=== PATIENT | female | born 1955 | race Caucasian/White ===

== ENCOUNTER 2017-06-25 17:58 | Emergency (ER) | payer OTHER ==
[2017-06-25 19:00] LABS: ADD MAN DIFF? NO
[2017-06-25] MEDS ORDERED: 0.9 % SODIUM CHLORIDE 10 ML DISP.SYRIN. IV (19:00)
[2017-06-25 19:03] LABS: BASO % 1 % (0-3); EOS # 0.1 x10^3/uL (0.0-0.7); EOS % 2 % (0-3); HEMATOCRIT 47.5 % (36.0-47.0); HEMOGLOBIN 16.1 g/dL (12.0-15.5); LYMPH # 1.3 x10^3/uL (1.0-4.8); LYMPH % 25 % (24-48); MEAN CORPUSCULAR HEMOGLOBIN 28 pg (25-35); MEAN CORPUSCULAR HGB CONC 34 g/dL (31-37); MEAN CORPUSCULAR VOLUME 83 fL (79-100); MONO # 0.8 x10^3/uL (0.0-1.1); MONO % 15 % (0-9); NEUT # 3.1 x10^3uL (1.8-7.7); NEUT % 58 % (31-73); PLATELET COUNT 152 x10^3/uL (140-400); RED BLOOD COUNT 5.71 x10^6/uL (3.50-5.40); RED CELL DISTRIBUTION WIDTH 13.8 % (11.5-14.5); WHITE BLOOD COUNT 5.4 x10^3/uL (4.0-11.0)
[2017-06-25] MEDS: IV NORMAL SALINE 1000ML BAG 1,000 ML IV (19:03)
[2017-06-25 19:23] LABS: BILIRUBIN,URINE SMALL (NEG); CLARITY,URINE CLOUDY; COLOR,URINE AMBER; GLUCOSE,URINE 250 mg/dL (NEG); NITRITE,URINE NEGATIVE (NEG); PH,URINE 5.5; PROTEIN,URINE NEGATIVE (NEG-TRACE); UROBILINOGEN,URINE 0.2 mg/dL (0.2 mg/dL)
[2017-06-25 19:41] LABS: ANION GAP 11 (6-14); BLOOD UREA NITROGEN 9 mg/dL (7-20); CALCIUM 8.7 mg/dL (8.5-10.1); CARBON DIOXIDE 26 mmol/L (21-32); CHLORIDE 102 mmol/L (98-107); CREATININE 0.7 mg/dL (0.6-1.0); GFR 85.1; GLUCOSE 209 mg/dL (70-99); POTASSIUM 4.4 mmol/L (3.5-5.1); SODIUM 139 mmol/L (136-145)
[2017-06-25 19:46] LABS: ALBUMIN 3.8 g/dL (3.4-5.0); ALK PHOS 81 U/L (46-116); ALT (SGPT) 39 U/L (14-59); AST (SGOT) 20 U/L (15-37); DIRECT BILIRUBIN < 0.1 mg/dL (0.0-0.2); LIPASE 149 U/L (73-393); TOTAL BILIRUBIN 0.5 mg/dL (0.2-1.0); TOTAL PROTEIN 7.3 g/dL (6.4-8.2)
[2017-06-25 19:47] LABS: TROPONINI < 0.017 ng/mL (0.000-0.055)
[2017-06-25 19:58] LABS: CKMB MASS < 0.5 ng/mL (0.0-3.6); CREATINE KINASE 34 U/L (26-192)
[2017-06-25 20:20] LABS: BACTERIA,URINE MODERATE /HPF (0-FEW); RBC,URINE 0 /HPF (0-2); SQUAMOUS EPITHELIAL CELL,UR MOD /LPF
== END 2017-06-25 20:37 | disposition home or self-care (01) ==
LOC: ER 17:58
DX: R19.7 Diarrhea, unspecified (principal); H92.02 Otalgia, left ear; R42 Dizziness and giddiness; E78.00 Pure hypercholesterolemia, unspecified; E11.40 Type 2 diabetes mellitus with diabetic neuropathy, unspecified; I10 Essential (primary) hypertension; K21.9 Gastro-esophageal reflux disease without esophagitis; Z90.49 Acquired absence of other specified parts of digestive tract; Z90.710 Acquired absence of both cervix and uterus; Z98.51 Tubal ligation status; Z86.73 Personal history of transient ischemic attack (TIA), and cerebral infarction without residual deficits; Z88.2 Allergy status to sulfonamides; Z88.6 Allergy status to analgesic agent; Z88.8 Allergy status to other drugs, medicaments and biological substances
CPT/HCPCS: 36415; 80048; 80076; 81001; 82553; 83690; 84484; 85025; 87086; 93005; 96360; 99285-25; J7030

== ENCOUNTER 2018-04-14 11:56 | Emergency (ER) | payer OTHER ==
[~2018-04-14] VITALS: Ht 160 cm; Wt 77.1 kg
[~2018-04-14 11:56] MED LIST: DIPH1TAB PO; HYOS0.12 PO; ONDA4TAB10 PO
[2018-04-14] MEDS ORDERED: IV NORMAL SALINE 1000ML BAG 1,000 ML IV ONE (12:30)
[2018-04-14] MEDS ORDERED: FAMOTIDINE 20 MG/2 ML VIAL IVP ONE (12:30)
[2018-04-14] MEDS ORDERED: LIDO:MAALOX 1:1 20 ML SINGLE DOSE. SWSW ONE (12:30)
--- NOTE | 2018-04-14 12:37 | PHYS DOC ---
Past Medical History Past Medical History: Diabetes-Type II, GERD, High Cholesterol, Hypertension, TIA Additional Past Medical Histor: NEUROPATHY,H-PYLORIC Past Surgical History: Cholecystectomy, Hysterectomy, Tubal ligation Additional Past Surgical Histo: CARPEL TUNNEL Alcohol Use: None Drug Use: None Adult General Chief Complaint Chief Complaint: OTHER COMPLAINTS HPI HPI Patient is a 63 year old female who presents with frequent eructations. Onset of symptoms around 2100 last night. She states she has had continuous belching since onset of symptoms as well as the sensation of "a bubble" stuck in her chest. She has had some intermittent stabbing type chest pains. They're nonradiating. No shortness of breath or palpitations. She has not had a fever or chills or cough. She does have a prior history of reflux disease but has had no symptoms in recent years. Remotely, she had been treated with Nexium. No prior history of coronary artery disease. She does have diabetes and hypertension. Review of Systems Review of Systems Constitutional: Denies fever Eyes: Denies change in visual acuity HENT: Denies nasal congestion Respiratory: Denies cough or shortness of breath Cardiovascular: No additional information not addressed in HPI GI: Denies abdominal pain, nausea : Denies dysuria or hematuria Musculoskeletal: Denies back pain Integument: Denies rash or skin lesions Neurologic: Denies headache, Endocrine: Denies polyuria All other systems were reviewed and found to be within normal limits, except as documented in this note. Current Medications Current Medications Current Medications Medications (Trade) Dose Ordered Sig/Trav Start Time Stop Time Status Last Admin Dose Admin Famotidine (Pepcid Vial) 20 mg 1X ONCE 04/14/18 12:30 04/14/18 12:31 DC 04/14/18 12:55 20 MG Multi-Ingredient Mouthwash/Gargle (Gi Cocktail) 20 ml 1X ONCE 04/14/18 12:30 04/14/18 12:31 DC 04/14/18 12:52 20 ML Sodium Chloride 1,000 ml @ 1,000 mls/hr 1X ONCE 04/14/18 12:30 04/14/18 13:29 DC 04/14/18 12:53 1,000 MLS/HR Allergies Allergies Allergies Coded Allergies Type Severity Reaction Last Updated Verified Sulfa (Sulfonamide Antibiotics) Allergy Intermediate RASH 06/25/17 Yes aspirin Allergy Intermediate RASH 06/25/17 Yes ibuprofen Allergy Intermediate RASH 06/25/17 Yes Physical Exam Physical Exam Constitutional: Well developed, well nourished, no acute distress, non-toxic appearance HENT: Normocephalic, atraumatic, bilateral external ears normal, oropharynx moist Eyes: PERRLA, EOMI Neck: Normal range of motion Cardiovascular:Heart rate regular rhythm, no murmur Lungs & Thorax: Bilateral breath sounds clear to auscultation Abdomen: Bowel sounds normal, soft, NTTP Skin: Warm, dry, no erythema Back: No tenderness Extremities: No edema Neurologic: Alert and oriented X 3 Psychologic: Affect normal Current Patient Data Vital Signs Vital Signs Date Time Temp Pulse Resp B/P (MAP) Pulse Ox O2 Delivery O2 Flow Rate FiO2 04/14/18 14:35 93 20 114/83 (93) 95 Room Air 04/14/18 12:15 98.3 98.3 Lab Values Laboratory Tests Test 04/14/18 12:35 White Blood Count 6.6 x10^3/uL (4.0-11.0) Red Blood Count 5.09 x10^6/uL (3.50-5.40) Hemoglobin 14.7 g/dL (12.0-15.5) Hematocrit 42.2 % (36.0-47.0) Mean Corpuscular Volume 83 fL (79-100) Mean Corpuscular Hemoglobin 29 pg (25-35) Mean Corpuscular Hemoglobin Concent 35 g/dL (31-37) Red Cell Distribution Width 13.3 % (11.5-14.5) Platelet Count 166 x10^3/uL (140-400) Neutrophils (%) (Auto) 59 % (31-73) Lymphocytes (%) (Auto) 29 % (24-48) Monocytes (%) (Auto) 9 % (0-9) Eosinophils (%) (Auto) 3 % (0-3) Basophils (%) (Auto) 1 % (0-3) Neutrophils # (Auto) 3.9 x10^3uL (1.8-7.7) Lymphocytes # (Auto) 1.9 x10^3/uL (1.0-4.8) Monocytes # (Auto) 0.6 x10^3/uL (0.0-1.1) Eosinophils # (Auto) 0.2 x10^3/uL (0.0-0.7) Basophils # (Auto) 0.1 x10^3/uL (0.0-0.2) Sodium Level 134 mmol/L (136-145) L Potassium Level 4.4 mmol/L (3.5-5.1) Chloride Level 99 mmol/L (98-107) Carbon Dioxide Level 24 mmol/L (21-32) Anion Gap 11 (6-14) Blood Urea Nitrogen 10 mg/dL (7-20) Creatinine 0.8 mg/dL (0.6-1.0) Estimated GFR (Cockcroft-Gault) 72.7 Glucose Level 433 mg/dL (70-99) H Calcium Level 8.8 mg/dL (8.5-10.1) Troponin I Quantitative < 0.017 ng/mL (0.000-0.055) Laboratory Tests 04/14/18 12:35 Laboratory Tests 04/14/18 12:35 EKG EKG No STEMI Interpretation Time: 12:22 Radiology/Procedures Radiology/Procedures CXR: no acute findings Course & Med Decision Making Course & Med Decision Making Pertinent Labs and Imaging studies reviewed. (See chart for details) Patient is seen and examined. No distress. Sx for around 15 hours. Will check trop and ACS workup. EKG is non-acute. 15:15: Patient was evaluated in the emergency department for reflux symptoms. Her symptoms were improved after Pepcid and GI cocktail in the emergency department. Her lab panel is unremarkable. Her troponin was not elevated. Her EKG was normal. The patient had been having symptoms for around 15 hours prior to presentation. She was discharged to home with a prescription for Nexium. She' ll follow up with her primary care doctor or return to the ER for any new or worsening symptoms. Dragon Disclaimer Dragon Disclaimer This electronic medical record was generated, in whole or in part, using a voice recognition dictation system. Departure Departure Disposition: 01 HOME, SELF-CARE Condition: GOOD Referrals: DENG DIAZ DO (PCP) Scripts Omeprazole (OMEPRAZOLE) 40 Mg Capsule. 40 MG PO BIDAC, #60 CAP Prov: ISH DELGADILLO DO 04/14/18 ISH DELGADILLO DO Apr 14, 2018 12:37
[2018-04-14 12:51] LABS: BASO # 0.1 x10^3/uL (0.0-0.2); BASO % 1 % (0-3); EOS # 0.2 x10^3/uL (0.0-0.7); EOS % 3 % (0-3); HEMATOCRIT 42.2 % (36.0-47.0); HEMOGLOBIN 14.7 g/dL (12.0-15.5); LYMPH # 1.9 x10^3/uL (1.0-4.8); LYMPH % 29 % (24-48); MEAN CORPUSCULAR HEMOGLOBIN 29 pg (25-35); MEAN CORPUSCULAR HGB CONC 35 g/dL (31-37); MEAN CORPUSCULAR VOLUME 83 fL (79-100); MONO # 0.6 x10^3/uL (0.0-1.1); MONO % 9 % (0-9); NEUT # 3.9 x10^3uL (1.8-7.7); NEUT % 59 % (31-73); PLATELET COUNT 166 x10^3/uL (140-400); RED BLOOD COUNT 5.09 x10^6/uL (3.50-5.40); RED CELL DISTRIBUTION WIDTH 13.3 % (11.5-14.5); WHITE BLOOD COUNT 6.6 x10^3/uL (4.0-11.0)
--- NOTE | 2018-04-14 13:01 | EKG ---
[facility] [address] [place] [address] Test Date: 2018-04-14 Test Time: 12:22:05 Pat Name: LIAT BUSH Department: Room: Gender: F Hemodialysis Patient Care Specialist: : [id number] Requested By: ISH DELGADILLO Order Number: [id number] Reading MD: Vic Meyers MD Measurements Intervals [place] Rate: 103 P: 54 RI: 130 QRS: 81 QRSD: 76 T: 41 QT: 340 QTc: 447 Interpretive Statements SINUS TACHYCARDIA Electronically Signed On 04-15-2018 12:15:26 [employer] by Vic Meyers MD
[2018-04-14 13:07] LABS: CALCIUM 8.8 mg/dL (8.5-10.1); CREATININE 0.8 mg/dL (0.6-1.0); GFR 72.7; POTASSIUM 4.4 mmol/L (3.5-5.1)
--- NOTE | 2018-04-14 13:23 | RAD ---
EXAM: AP View of the chest DATE: 04/14/2018 12:48 PM INDICATION: CHEST PAIN COMPARISON: No Prior FINDINGS: The heart is not enlarged. Mediastinal and hilar contours are normal. No focal parenchymal airspace opacity. No pleural effusion or pneumothorax. IMPRESSION: 1. No radiographic evidence for acute cardiopulmonary process. Electronically signed by: Klever Jarquin MD (04/14/2018 1:19 PM) [id number]
[2018-04-14] MEDS ORDERED: OMEP40CA5 PO (14:34)
[2018-04-14 14:35] VITALS: BP 114/83
== END 2018-04-14 14:40 | disposition home or self-care (01) ==
LOC: ER 11:56
DX: R07.89 Other chest pain (principal); R14.2 Eructation; I10 Essential (primary) hypertension; E11.40 Type 2 diabetes mellitus with diabetic neuropathy, unspecified; E78.00 Pure hypercholesterolemia, unspecified; K21.9 Gastro-esophageal reflux disease without esophagitis; Z86.73 Personal history of transient ischemic attack (TIA), and cerebral infarction without residual deficits; Z88.2 Allergy status to sulfonamides; Z88.6 Allergy status to analgesic agent; Z88.8 Allergy status to other drugs, medicaments and biological substances
CPT/HCPCS: 36415; 71045; 80048; 84484; 85025; 93005; 96374; 99284; J3490; J7030

== ENCOUNTER 2018-07-15 19:23 | Emergency (ER) | payer OTHER ==
[~2018-07-15] VITALS: Ht 160 cm; Wt 79.4 kg
[~2018-07-15 19:23] MED LIST changes: +OMEP40CA5 PO
[2018-07-15] MEDS ORDERED: ONDANSETRON ODT 4 MG TAB.RAPDIS. PO ONE (19:45)
--- NOTE | 2018-07-15 20:17 | RAD ---
CT head without contrast: Reason for examination: Fell with headache and neck pain. Axial images were obtained through the brain. No contrast was administered. Ventricular systems are symmetric and not dilated. No midline shift is seen. There is no evidence of intracranial hemorrhage, infarct, mass or edema. No abnormalities are seen at the orbits. The paranasal sinuses and mastoid air cells are clear. No acute abnormality seen in the skull. IMPRESSION: No acute intracranial abnormality seen. CT cervical spine without contrast: Helical images were obtained through the cervical spine from skull base through the thoracic apices with no contrast administered. Reconstruction was performed in sagittal and coronal planes. The C1 ring appears to be intact. The odontoid process is intact and normally centered between the lateral masses of C1. The vertebral bodies of the cervical spine are normally aligned anteriorly and posteriorly with no fracture or subluxation. The posterior elements appear to be intact. There are degenerative changes of facet joints which are most prominent on the right at the C3-4 C4-5 and C5-6 levels. The intervertebral discs show some degenerative changes with hypertrophic spurring at the C6-7 level with moderate loss of disc height causing at least mild left lateral recess stenosis and moderate left neural foraminal stenosis. The remaining intervertebral discs are maintained. Prevertebral soft tissues are normal. IMPRESSION: Degenerative spondylosis with hypertrophic spurring and moderate loss of disc height at the C6-7 level with mild left lateral recess stenosis and moderate left neural foraminal stenosis. No acute abnormality seen in the cervical spine. Exposure: One or more of the following individualized dose reduction techniques were utilized for this examination: 1. Automated exposure control 2. Adjustment of the mA and/or kV according to patient size 3. Use of iterative reconstruction technique. Electronically signed by: Otilia Jeffries MD (07/15/2018 8:13 PM) [facility]
[2018-07-15 20:28] VITALS: BP 141/70
[2018-07-15] MEDS ORDERED: DICL50TA4 PO (20:33)
[2018-07-15] MEDS ORDERED: TRAM50TA PO (20:33)
--- NOTE | 2018-07-15 20:33 | PHYS DOC ---
Past Medical History Past Medical History: Diabetes-Type II, GERD, High Cholesterol, Hypertension, TIA Additional Past Medical Histor: NEUROPATHY,H-PYLORIC Past Surgical History: Cholecystectomy, Hysterectomy, Tonsillectomy, Tubal ligation Additional Past Surgical Histo: CARPEL TUNNEL Alcohol Use: None Drug Use: None Adult General Chief Complaint Chief Complaint: MECHANICAL FALL [facility] HPI Patient is a 63-year-old female who presents via POV after reportedly falling this morning at around 9:20 AM. Patient states that she was stepping off the banister and missed a step and lost her footing and then fell. Patient states that she has bilateral knee pain, left ankle pain as well as head pain. She states that she lost consciousness for a few seconds. She also indicates that she has some neck pain but states that that is chronic so she is not sure if anything happened to her neck. Patient rates her pain as moderate. She states the pain is worsened with weightbearing. Review of Systems Review of Systems Constitutional: Denies fever or chills [] Respiratory: Denies cough or shortness of breath [] Cardiovascular: No additional information not addressed in HPI [] Musculoskeletal: Complains of bilateral knee and left ankle pain [] Integument: Denies rash or skin lesions [] Neurologic: Rogers of headache without focal weakness or sensory changes [] Current Medications Current Medications Current Medications Medications (Trade) Dose Ordered Sig/Trav Start Time Stop Time Status Last Admin Dose Admin Ondansetron HCl (Zofran Odt) 4 mg 1X ONCE 07/15/18 19:45 07/15/18 19:46 DC 07/15/18 19:47 4 MG Allergies Allergies Allergies Coded Allergies Type Severity Reaction Last Updated Verified Sulfa (Sulfonamide Antibiotics) Allergy Intermediate RASH 06/25/17 Yes aspirin Allergy Intermediate RASH 06/25/17 Yes ibuprofen Allergy Intermediate RASH 06/25/17 Yes Physical Exam Physical Exam Constitutional: Well developed, well nourished, no acute distress, non-toxic appearance. [] HENT: Normocephalic, with small hematoma to the right occipital region, bilateral external ears normal, oropharynx moist, no oral exudates, nose normal. [] Eyes: PERRLA, EOMI, conjunctiva normal, no discharge. [] Neck: Normal range of motion, no tenderness, supple, no stridor. [] Cardiovascular: Regular rate and rhythm[] Lungs & Thorax: Bilateral breath sounds clear to auscultation [] Extremities: Examination of left ankle demonstrates tenderness to palpation in the lateral aspect of the ankle and distribution of the anterior talofibular ligament. Examination of bilateral knees demonstrates tenderness to palpation overlying the patellae. No deformity or other signs of trauma are noted on exam. [] Neurologic: Alert and oriented X 3, no focal deficits noted. [] Current Patient Data Vital Signs Vital Signs Date Time Temp Pulse Resp B/P (MAP) Pulse Ox O2 Delivery O2 Flow Rate FiO2 07/15/18 19:28 98.2 104 16 109/74 (86) 97 Room Air 98.2 EKG EKG [] Radiology/Procedures Radiology/Procedures [] Impressions: CT of the head and neck demonstrate no acute abnormalities. X-ray imaging of bilateral knees and left ankle demonstrate no acute bony abnormalities. Course & Med Decision Making Course & Med Decision Making Pertinent Labs and Imaging studies reviewed. (See chart for details) [] Dragon Disclaimer Dragon Disclaimer This electronic medical record was generated, in whole or in part, using a voice recognition dictation system. Departure Departure Impression: Primary Impression: Knee contusion Additional Impressions: Left ankle sprain Closed head injury Disposition: HOME, SELF-CARE Condition: STABLE Referrals: DENG DIAZ DO (PCP) Patient Instructions: Ankle Sprain, Contusion, Head Injury, Adult Scripts Diclofenac Sodium (DICLOFENAC SODIUM) 50 Mg Tablet.dr 1 TAB PO BID PRN for PAIN, #20 TAB Prov: BARBARA HORTON Jr. DO 07/15/18 Tramadol Hcl (TRAMADOL HCL) 50 Mg Tablet 50 MG PO Q6HRS PRN for PAIN, #10 TAB Prov: BARBARA HORTON Jr. DO 07/15/18 Problem Qualifiers Primary Impression: Knee contusion Encounter type: initial encounter Laterality: unspecified laterality Qualified Codes: S80.00XA - Contusion of unspecified knee, initial encounter Additional Impressions: Left ankle sprain Encounter type: initial encounter Involved ligament of ankle: anterior talofibular ligament Qualified Codes: S93.492A - Sprain of other ligament of left ankle, initial encounter Closed head injury Encounter type: initial encounter Qualified Codes: S09.90XA - Unspecified injury of head, initial encounter BARBARA HORTON Jr., DO Jul 15, 2018 20:33
--- NOTE | 2018-07-16 08:35 | RAD ---
Indications: Fall and pain 3 view left ankle study: No acute fracture or dislocation or lytic process is evident. The mortise ankle joint is intact. Posterior plantar spurs the calcaneus are seen. IMPRESSION: No acute fracture of the left ankle. Three-view left knee study: No acute fracture or dislocation or lytic process is evident. Moderate-sized knee joint effusion is seen. Radiopaque loose bodies are present within posterior tibiofemoral compartment and the suprapatellar recess. Degenerative spurring of the medial and lateral tibiofemoral joint compartments and the patellofemoral joint compartment is seen. Right knee: No acute fracture or dislocation or lytic process is evident. There is degenerative spurring of the medial and lateral tibiofemoral joint compartments and the patellofemoral joint compartment. Moderate-sized knee joint effusion is seen. A posterior sessile osteochondroma is seen involving the distal metaphysis of the femur which measures 5.7 cm in length. No aggressive features are seen. IMPRESSION: Tricompartmental primary degenerative osteoarthritis of both knees. Moderate-sized joint effusion of both knees. Radiopaque loose bodies of the left knee. Sessile osteochondroma of the posterior distal right femur. No acute fracture of either knee. Electronically signed by: Bret Rose MD (07/16/2018 8:32 AM) [id number]
== END 2018-07-15 20:57 | disposition home or self-care (01) ==
LOC: ER 19:23
DX: S93.492A Sprain of other ligament of left ankle, initial encounter (principal); S80.02XA Contusion of left knee, initial encounter; S80.01XA Contusion of right knee, initial encounter; S00.03XA Contusion of scalp, initial encounter; K21.9 Gastro-esophageal reflux disease without esophagitis; E78.00 Pure hypercholesterolemia, unspecified; I10 Essential (primary) hypertension; E11.40 Type 2 diabetes mellitus with diabetic neuropathy, unspecified; Z90.49 Acquired absence of other specified parts of digestive tract; Z86.73 Personal history of transient ischemic attack (TIA), and cerebral infarction without residual deficits; Z90.710 Acquired absence of both cervix and uterus; Z90.89 Acquired absence of other organs; Z98.51 Tubal ligation status; Z88.2 Allergy status to sulfonamides; Z88.6 Allergy status to analgesic agent; W10.8XXA Fall (on) (from) other stairs and steps, initial encounter; Y93.89 Activity, other specified; Y92.89 Other specified places as the place of occurrence of the external cause; Y99.8 Other external cause status
CPT/HCPCS: 70450; 72125; 73562; 73610; 99284; Q0162